=== PATIENT | male | born 1935 | race Caucasian/White ===

== ENCOUNTER → 2019-01-03 10:06 | Outpatient (CLI) | payer MEDICARE, OTHER ==
--- NOTE | 2019-01-09 08:49 | EC ---
PATIENT:ELENA BLANCO DATE OF SERVICE: 01/03/19 SEX: M MEDICAL RECORD: [id number] DATE OF : 31 LOCATION:D[facility] AGE OF PATIENT: 83 ADMISSION DATE: 01/03/19 REFERRING PHYSICIAN: INTERPRETING PHYSICIAN: PEDRO CRISOSTOMO MD ECHOCARDIOGRAM REPORT ECHO CHARGES 4 ECHO COMPLETE Date: 01/03/19 CLINICAL DIAGNOSIS: CAD HX OF HTN ECHOCARDIOGRAPHIC MEASUREMENTS (adult normal given) AC root (d.<3.7cm) 3.5 cm LV Septum d (<1.2 cm> 1.4 cm Valve Excursion 1.6 cm LV Septum (systole) 1.8 cm Left Atria (s.<4.0cm> 4.7 cm LVPW d(<1.2cm) 1.4 cm RV (d.<2.3cm) 4.4 cm LVPW (sytole) 2.1 cm LV diastole(<5.6CM) 4.9 cm MV E-F(>70mm/sec) cm LV systole 2.9 cm LVOT Diameter 1.8 cm MV exc.(>10mm) 1.4 cm Est.ejection fraction (50-75%) % DOPPLER: LVIT cm/sec A 58.0 cm/sec E 51.0 cm/sec LA cm/sec RVSP 29 mmHg LVOT 101 cm/sec AOP1/2T 660 m/s Asc. Ao 226 cm/sec RVOT 97 cm/sec RA cm/sec PA 99 cm/sec AV Gradient Peak 20.37mmHg AV Mean 11.53mmHg AV Area 1.4 cm MV Gradient Peak 2.57 mmHg MV Mean 0.67 mmHg MV Area cm COMMENTS: Supervisor Drapery Hanging: 2 SABRINA TOPETE Load Mixer: 3 Dr. Lockett TAPE# PACS Pericardial Effusion N DATE OF SERVICE: 01/03/2019 Adequate 2-D, color-flow and spectral Doppler, and M-mode. LVH is present. LV internal dimensions are normal. Wall motion is normal. EF is greater than or equal to 55%. Aortic valve is tricuspid. No evidence of stenosis by Doppler interrogation. Left atrium is dilated at 4.7 cm. 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 Mild MR. Right-sided chambers are grossly normal. Mild TR. ECHOCARDIOGRAM REPORT [id number] ELENA BLANCO TRANSINT:[id number] Voice Confirmation ID: [id number] DOCUMENT ID: [id number] PEDRO CRISOSTOMO MD at 0849 CC: [id number] DICTATION DATE: 01/04/19 1343 VENEER SORTER: 01/04/19 1820 [facility] CLI 01/03/19 [place] [id number] [place] [id number]
== END | disposition home or self-care (01) ==
LOC: D.HCCARDIO 10:06
PROVIDERS: ATTEND Internal Medicine Interventional Cardiology
DX: I25.10 Atherosclerotic heart disease of native coronary artery without angina pectoris (principal)

== ENCOUNTER → 2019-07-17 09:34 | Outpatient (CLI) | payer MEDICARE, OTHER ==
--- NOTE | 2019-07-20 13:51 | EC ---
PATIENT:ELENA BLANCO DATE OF SERVICE: 07/17/19 SEX: M MEDICAL RECORD: [id number] DATE OF : 31 LOCATION:D[facility] AGE OF PATIENT: 84 ADMISSION DATE: 07/17/19 REFERRING PHYSICIAN: INTERPRETING PHYSICIAN: PEDRO CRISOSTOMO MD ECHOCARDIOGRAM REPORT ECHO CHARGES 4 ECHO COMPLETE Date: 07/17/19 CLINICAL DIAGNOSIS: HX HTN/CAD ASSESS EF AND VALVES ECHOCARDIOGRAPHIC MEASUREMENTS (adult normal given) AC root (d.<3.7cm) 3.7 cm LV Septum d (<1.2 cm> 1.3 cm Valve Excursion 1.5 cm LV Septum (systole) 1.7 cm Left Atria (s.<4.0cm> 4.1 cm LVPW d(<1.2cm) 1.3 cm RV (d.<2.3cm) 4.5 cm LVPW (sytole) 1.5 cm LV diastole(<5.6CM) 5.2 cm MV E-F(>70mm/sec) cm LV systole 4.2 cm LVOT Diameter 2.1 cm MV exc.(>10mm) 1.4 cm Est.ejection fraction (50-75%) % DOPPLER: LVIT cm/sec A 70.0 cm/sec E 61.0 cm/sec LA cm/sec RVSP 35 mmHg LVOT 94 cm/sec AOP1/2T 570 m/s Asc. Ao 237 cm/sec RVOT 61 cm/sec RA cm/sec PA 140 cm/sec AV Gradient Peak 22.54mmHg AV Mean 12.28mmHg AV Area 1.3 cm MV Gradient Peak 2.75 mmHg MV Mean 0.91 mmHg MV Area cm COMMENTS: Food Quality Tester: Elly TOPETE Delimer: 3 Dr. Lockett TAPE# PACS Pericardial Effusion N DATE OF SERVICE: 07/17/2019 Adequate 2D, color flow, spectral Doppler, and M-Mode LVH is present. LV internal dimension is normal. Wall motion is normal. EF is greater than or equal to ____%. Aortic valve is calcified with restriction of leaflet motion. Peak gradient of 22 mmHg, putting this in mild range. Left atrium minimally dilated at 4.1 cm. Mitral valve shows no prolapse. Mild MR. Right-sided chambers are grossly normal. Mild TR. ECHOCARDIOGRAM REPORT [id number] ELENA BLANCO TRANSINT:[id number] Voice Confirmation ID: [id number] DOCUMENT ID: [id number] PEDRO CRISOSTOMO MD at 1351 CC: [id number] DICTATION DATE: 07/19/19 143 EXTENSION SERVICE ADVISOR: 07/19/19 2209 [facility] CLI 07/17/19 [place] [id number] [place] [id number]
== END | disposition home or self-care (01) ==
LOC: D.HCCECHO 09:34 → D.HCCARDIO 10:00 → D.HCCECHO 10:00
PROVIDERS: ATTEND Internal Medicine Interventional Cardiology
DX: I10 Essential (primary) hypertension (principal)